=== PATIENT | female | born 1955 | race Caucasian/White ===

== ENCOUNTER → 2019-05-06 | Outpatient (CLI) | payer MEDICARE ==
[~2019-05-06] MED LIST: ALBU6.7H INH; ASPI-496 PO; ATOR40TA78 PO; BENZ28CR VG; BUDE10.2 INH; CALC1CAP8 PO; CARV6.252 PO; CITA20TA6 PO; LEVO25TA4 PO; MELO7.5T31 PO; METF500T17 PO; MONT10TA6 PO; MULT1TAB60 PO; PANT40TA3 PO
[2019-05-06 11:05] LABS: BASOPHILS # (AUTO) 0.03 x10^3/uL (0-0.1); BASOPHILS % (AUTO) 1 % (0-1); EOSINOPHILS # (AUTO) 0.08 x10^3/uL (0-0.4); EOSINOPHILS % (AUTO) 1 % (1-7); INTERNATIONAL NORMALIZED RATIO 0.95 (0.93-1.1); LYMPHOCYTES # (AUTO) 2.05 x10^3/uL (1-3.4); LYMPHOCYTES % (AUTO) 38 % (22-44); MD NO; MEAN CORPUSCULAR HEMOGLOBIN 27.1 pg (27.0-34.8); MEAN CORPUSCULAR HGB CONC 31.6 g/dL (32.4-35.8); MEAN CORPUSCULAR VOLUME 85.7 fL (80-100); MONOCYTES % (AUTO) 7 % (2-9); NEUTROPHILS # (AUTO) 2.87 x10^3/uL (1.8-6.8); NEUTROPHILS % (AUTO) 53 % (42-75); PLATELET COUNT 268 x10^3/uL (130-400); RED BLOOD COUNT 4.93 x10^6/uL (3.82-5.3); RED CELL DISTRIBUTION WIDTH 15.9 % (9.6-15.2)
[2019-05-06 11:08] LABS: CALCIUM 9.1 mg/dL (8.5-10.1); CHLORIDE 105 mmol/L (98-107)
[2019-05-06 11:14] LABS: ALANINE AMINOTRANSFERASE 26 U/L (12-78); ALBUMIN 3.7 g/dL (3.4-5.0); ALKALINE PHOSPHATASE 67 U/L (45-117); ANION GAP 8 mmol/L (5-15); BILIRUBIN,TOTAL 0.6 mg/dL (0.2-1.0); CREATININE 0.78 mg/dL (0.55-1.02)
[2019-05-06 12:28] LABS: HEMOGLOBIN A1C 7.4 % (4.2-6.3)
== END | disposition home or self-care (01) ==
LOC: STAR 09:24
PROVIDERS: ATTEND Orthopaedic Surgery
DX: Z01.818 Encounter for other preprocedural examination (principal); M17.12 Unilateral primary osteoarthritis, left knee; M25.562 Pain in left knee; J45.909 Unspecified asthma, uncomplicated; I45.10 Unspecified right bundle-branch block
CPT/HCPCS: 36415; 80053; 83036; 85025; 85610; 85730; 87081; 87806; 93005; G0475

== ENCOUNTER 2019-05-11 08:18 | Observation (INO) | payer MEDICARE ==
[~2019-05-11] VITALS: Ht 170.2 cm; Wt 89.2 kg
[~2019-05-11 08:18] MED LIST changes: +EPINEPHRINE 1 MG/ML, 1ML ONE; +KETOROLAC 60 MG/2 ML ONE; +ROPIvacaine/PF 0.2%, 20 ML ONE; +SODIUM CHLORIDE 0.9% 100 ML ONE; +TRANEXAMIC ACID 100 MG/ML, 10ML ONE
[2019-05-11] MEDS ORDERED: LACTATED RINGERS 1,000 ML IV SCH (09:22)
[2019-05-11] MEDS ORDERED: ACETAMINOPHEN 500 MG TABLET PO ONE (09:30)
[2019-05-11] MEDS ORDERED: GABAPENTIN 300 MG CAPSULE PO ONE (09:30)
[2019-05-11] MEDS ORDERED: MIDAZOLAM 1 MG/ML, 2ML ONE (09:55)
[2019-05-11] MEDS ORDERED: FENTANYL PF 250 MCG/5ML ONE (09:56)
[2019-05-11] MEDS ORDERED: ONDANSETRON 4 MG TABLET PO PRN (11:00)
[2019-05-11] MEDS ORDERED: ALUMINUM/MAG/SIMETHICONE 30 ML UDC PO PRN (11:00)
[2019-05-11] MEDS ORDERED: PROMETHAZINE 25 MG/ML, 1ML IM PRN (11:00)
[2019-05-11] MEDS ORDERED: TRANEXAMIC ACID 1,000 MG in SODIUM CHLORIDE 0.9% 100 ML IVPB ONE (11:00)
[2019-05-11] MEDS ORDERED: ONDANSETRON 2MG/ML, 2ML IV PRN (11:00)
[2019-05-11] MEDS ORDERED: SENNA/DOCUSATE TABLET PO PRN (11:00)
[2019-05-11] MEDS ORDERED: POLYETHYLENE GLYCOL 17 GM PACKET PO PRN (11:00)
[2019-05-11] MEDS ORDERED: HYDROmorphone 1 MG/ML, 1ML INJ IVPush PRN (11:00)
[2019-05-11] MEDS ORDERED: PSYLLIUM PACKET PO PRN (11:00)
[2019-05-11] MEDS ORDERED: DIPHENHYDRAMINE 25 MG CAPSULE PO PRN (11:00)
[2019-05-11] MEDS ORDERED: MAGNESIUM HYDROXIDE 8%, 30ML UDC PO PRN (11:00)
[2019-05-11] MEDS ORDERED: ACETAMINOPHEN 650 MG/20.3 ML UDC PO PRN (11:00)
[2019-05-11] MEDS: FENTANYL PF 100 MCG/2ML IV PRN ×2 (12:44→13:10)
[2019-05-11] MEDS ORDERED: FENTANYL PF 100 MCG/2ML ONE (12:45)
[2019-05-11] MEDS ORDERED: MEPERIDINE/PF 25MG/ML,1ML ONE (12:54)
[2019-05-11] MEDS ORDERED: OXYcodone 5 MG/5 ML ORAL.SOL UDC ONE (12:55)
[2019-05-11] MEDS ORDERED: HYDROmorphone 1 MG/ML, 1ML INJ IV PRN (13:00)
[2019-05-11] MEDS ORDERED: ALBUTEROL SULFATE 2.5 MG/3 ML NPPB PRN (13:00)
[2019-05-11] MEDS ORDERED: OXYcodone 5 MG/5 ML ORAL.SOL UDC PO PRN (13:00)
[2019-05-11] MEDS ORDERED: KETOROLAC 30 MG/1 ML IV PRN (13:00)
[2019-05-11] MEDS ORDERED: MEPERIDINE/PF 25MG/0.5ML IVPush PRN (13:00)
[2019-05-11] MEDS ORDERED: METOCLOPRAMIDE 5 MG/ML, 2ML IV PRN (13:00)
[2019-05-11] MEDS ORDERED: hydrALAzine 20 MG/ML, 1ML IV PRN (13:00)
[2019-05-11] MEDS ORDERED: LABETALOL 5MG/ML, 20ML IV PRN (13:00)
[2019-05-11] MEDS ORDERED: PROMETHAZINE 25 MG/ML, 1ML IV PRN (13:00)
[2019-05-11] MEDS ORDERED: ONDANSETRON 2MG/ML, 2ML IVPush PRN (13:00)
[2019-05-11] MEDS ORDERED: hydrALAzine 20 MG/ML, 1ML ONE (13:14)
[2019-05-11 14:05] VITALS: BP 122/78
[2019-05-11] MEDS: POTASSIUM CHLORIDE 20 MEQ in D5%-0.45% NACL 1,000 ML IV SCH (14:51)
[2019-05-11] MEDS: CEFAZOLIN PMX 1GM/50ML 50 ML IVPB SCH ×2 (14:52→23:36)
[2019-05-11] MEDS ORDERED: ALBUTEROL SULFATE 2.5 MG/3 ML HHN PRN (15:00)
[2019-05-11] MEDS: KETOROLAC 30 MG/1 ML IV SCH ×2 (15:04→22:11)
[2019-05-11] MEDS ORDERED: ROCURONIUM 10MG/ML,5ML ONE (16:01)
[2019-05-11] MEDS ORDERED: PROPOFOL 10 MG/ML, 20ML ONE (16:01)
[2019-05-11] MEDS ORDERED: CEFAZOLIN 1,000 MG ONE (16:01)
[2019-05-11] MEDS ORDERED: DEXAMETHASONE 4 MG/ML, 1ML ONE (16:01)
[2019-05-11] MEDS ORDERED: ONDANSETRON 2MG/ML, 2ML ONE (16:01)
[2019-05-11] MEDS ORDERED: SUCCINYLCHOLINE 20 MG/ML, 10ML ONE (16:01)
[2019-05-11] MEDS: ASPIRIN 81 MG TABLET EC PO SCH (18:00)
[2019-05-11] MEDS: CARVEDILOL 6.25 MG TABLET PO SCH (18:00)
[2019-05-11] MEDS: metFORMIN 500 MG TABLET PO SCH (18:00)
[2019-05-11] MEDS ORDERED: MONTELUKAST 10 MG TABLET PO SCH (21:00)
[2019-05-11] MEDS: ALBUTEROL SULFATE 2.5 MG/3 ML HHN SCH (21:00)
[2019-05-11] MEDS ORDERED: ATORVASTATIN 40 MG TABLET PO SCH (21:00)
[2019-05-11 21:17] VITALS: BP 113/74
[2019-05-11] MEDS: DOCUSATE 100 MG CAPSULE PO SCH (21:22)
[2019-05-11] MEDS: OXYcodone IR 5MG TABLET PO PRN (23:38)
[2019-05-12] MEDS: POTASSIUM CHLORIDE 20 MEQ in D5%-0.45% NACL 1,000 ML IV SCH (00:24)
[2019-05-12 00:59] VITALS: BP 125/73
[2019-05-12] MEDS: ALBUTEROL SULFATE 2.5 MG/3 ML HHN SCH ×3 (01:59→09:50)
[2019-05-12] MEDS: BUDESONIDE 0.5 MG/2 ML INHA INH SCH ×2 (02:00→09:50)
[2019-05-12 04:17] VITALS: BP 127/74
[2019-05-12] MEDS: OXYcodone IR 5MG TABLET PO PRN ×2 (04:32→08:41)
[2019-05-12] MEDS ORDERED: PANTOPROZOLE 40MG TABLET PO SCH (06:00)
[2019-05-12] MEDS ORDERED: DEXAMETHASONE 4 MG/ML, 1ML IVPush ONE (06:00)
[2019-05-12] MEDS: CARVEDILOL 6.25 MG TABLET PO SCH (06:00)
[2019-05-12] MEDS ORDERED: LEVOTHYROXINE 25 MCG TABLET PO SCH (06:00)
[2019-05-12] MEDS: KETOROLAC 30 MG/1 ML IV SCH (06:02)
[2019-05-12 07:48] VITALS: BP 123/59
[2019-05-12] MEDS: DOCUSATE 100 MG CAPSULE PO SCH (08:29)
[2019-05-12] MEDS: metFORMIN 500 MG TABLET PO SCH (08:29)
[2019-05-12] MEDS: ASPIRIN 81 MG TABLET EC PO SCH (08:29)
[2019-05-12] MEDS ORDERED: CITALOPRAM 20 MG TABLET PO SCH (09:00)
[2019-05-12] MEDS ORDERED: TAMSULOSIN 0.4 MG CAP.ER.24H PO SCH (09:00)
[2019-05-12 11:12] VITALS: BP 125/76
== END 2019-05-12 11:35 | disposition home or self-care (01) ==
LOC: OUT 08:18 → ORIP 12:22 → 4NOR 14:02 → DCLOUNGE 05-12 11:25
PROVIDERS: ADMIT Orthopaedic Surgery; ATTEND Orthopaedic Surgery
DX: M17.12 Unilateral primary osteoarthritis, left knee (principal); Z88.0 Allergy status to penicillin; Z91.040 Latex allergy status; Z88.5 Allergy status to narcotic agent; Z91.013 Allergy to seafood; Z79.899 Other long term (current) drug therapy
CPT/HCPCS: 27447; 36415; 73560; 82962; 85014; 85018; 96365; 96375; 96376; 97161; C1713; C1776; G0378; J0171; J0330; J0360; J0690; J1100; J1885; J2175; J2250; J2405; J2704; J2795; J3010; J3480; J7120; J7626